=== PATIENT | female | born 1985 | race African-American/Black ===

== ENCOUNTER 2017-11-01 11:25 | Emergency (ER) | payer SELFPAY ==
[~2017-11-01] VITALS: Ht 162.6 cm; Wt 79.4 kg
[2017-11-01] MEDS ORDERED: ALBUTEROL/IPRATROPIUM 3 ML NEB NEB ONE (11:45)
== END 2017-11-01 16:43 | disposition left against medical advice (07) ==
LOC: ER 11:25
DX: J45.909 Unspecified asthma, uncomplicated (principal)
CPT/HCPCS: 94640

== ENCOUNTER 2022-09-09 15:01 | Emergency (ER) | payer BC ==
[~2022-09-09] VITALS: Ht 162.6 cm; Wt 83.9 kg
[~2022-09-09 15:01] MED LIST: DEXAMETHASONE4 MG PO
[2022-09-09] MEDS ORDERED: KETOROLAC TROMETHAMINE 60 MG/2 ML VIAL IM ONE (15:15)
[2022-09-09 15:39] LABS: CLARITY,URINE SL CLOUDY (CLEAR); COLOR,URINE STRAW (YELLOW); KETONES,URINE NEGATIVE (NEGATIVE); LEUKOCYTE ESTERASE ,URINE SMALL (NEGATIVE); NITRITE,URINE NEGATIVE (NEGATIVE); PROTEIN,URINE DIPSTICK NEGATIVE (NEGATIVE); URINE UROBILINOGEN 0.2 mg/dL (0.2 - 1)
[2022-09-09 15:53] LABS: AMORPHOUS SEDIMENT,URINE MODERATE (FEW); BACTERIA,URINE MODERATE /HPF; EPITHELIAL CELLS,URINE MODERATE /LPF; TRICHOMONAS,URINE FEW
[2022-09-09] MEDS ORDERED: ONDANSETRON ODT4 MG PO (16:59)
[2022-09-09] MEDS ORDERED: METRONIDAZOLE500 MG PO (16:59)
[2022-09-09] MEDS ORDERED: ULTRAM 50MG50 MG PO (16:59)
[2022-09-09] MEDS ORDERED: CIPRO500 MG PO (16:59)
== END 2022-09-09 17:02 | disposition home or self-care (01) ==
LOC: ER 15:10 → MERGE 15:10 → ER 17:02
DX: M54.50 Low back pain, unspecified (principal); N39.0 Urinary tract infection, site not specified; A59.9 Trichomoniasis, unspecified; D25.9 Leiomyoma of uterus, unspecified
CPT/HCPCS: 74176; 81001; 81025; 99283; J1885